=== PATIENT | female | born 1995 | race Caucasian/White ===

== ENCOUNTER → 2017-07-13 | Emergency (ER) | payer OTHER ==
[~2017-07-13] VITALS: Ht 167.6 cm; Wt 56.7 kg
[~2017-07-13] MED LIST: OSEL75CA PO; TUSSI PRES-B L120 M1 PO
== END | disposition home or self-care (01) ==
LOC: ER 13:07
DX: B34.9 Viral infection, unspecified (principal)

== ENCOUNTER 2017-10-05 18:54 | Emergency (ER) | payer OTHER ==
[~2017-10-05] VITALS: Ht 167.6 cm; Wt 59.0 kg
[2017-10-06] MEDS ORDERED: ORPHENADRINE C100 MG PO (08:18)
[2017-10-06] MEDS ORDERED: CELEBREX100 MG PO (08:18)
[2017-10-06] MEDS ORDERED: PERCOCET 5-3251 EACH PO (08:18)
== END 2017-10-06 08:54 | disposition home or self-care (01) ==
LOC: ER 18:54
DX: S70.11XA Contusion of right thigh, initial encounter (principal); W18.39XA Other fall on same level, initial encounter; Y93.89 Activity, other specified; Y92.89 Other specified places as the place of occurrence of the external cause; Y99.8 Other external cause status; R74.8 Abnormal levels of other serum enzymes

== ENCOUNTER 2020-01-25 11:33 | Emergency (ER) | payer OTHER ==
[~2020-01-25] VITALS: Ht 167.6 cm; Wt 61.7 kg
[~2020-01-25 11:33] MED LIST changes: +CELEBREX100 MG PO; +ORPHENADRINE C100 MG PO; +PERCOCET 5-3251 EACH PO
[2020-01-25] MEDS ORDERED: DICLOFENAC SODI75 MG PO (13:03)
== END 2020-01-25 14:05 | disposition home or self-care (01) ==
LOC: ER 11:33
DX: S50.01XA Contusion of right elbow, initial encounter (principal); M12.521 Traumatic arthropathy, right elbow; W18.09XA Striking against other object with subsequent fall, initial encounter; Y93.89 Activity, other specified; Y92.830 Public park as the place of occurrence of the external cause; Y99.8 Other external cause status

== ENCOUNTER 2021-08-11 16:10 | Emergency (ER) | payer OTHER ==
[~2021-08-11] VITALS: Ht 167.6 cm; Wt 61.2 kg
[~2021-08-11 16:10] MED LIST changes: +DICLOFENAC SODI75 MG PO
== END 2021-08-11 21:16 | disposition home or self-care (01) ==
LOC: ER 16:10
DX: J11.1 Influenza due to unidentified influenza virus with other respiratory manifestations (principal); J15.7 Pneumonia due to Mycoplasma pneumoniae; Z20.822 Contact with and (suspected) exposure to COVID-19

== ENCOUNTER 2022-09-06 19:14 | Emergency (ER) | payer OTHER ==
[~2022-09-06] VITALS: Ht 167.6 cm; Wt 62.1 kg
== END 2022-09-06 21:49 | disposition home or self-care (01) ==
LOC: ER 19:14
DX: N94.0 Mittelschmerz (principal); R10.2 Pelvic and perineal pain; Z91.013 Allergy to seafood

== ENCOUNTER 2023-04-26 18:57 | Emergency (ER) | payer OTHER ==
[~2023-04-26] VITALS: Ht 167.6 cm; Wt 63.5 kg
[2023-04-26 19:52] LABS: HEMOGLOBIN 12.8 g/dL (12.0-15.00); MEAN CELL VOLUME 92.4 fL (80.00-100.00); MEAN CORPUSCULAR HGB CONC 33.5 g/dl (32.0-36.0); PLATELET COUNT 229 K/uL (150-450); RED BLOOD COUNT 4.12 M/uL (4.00-6.00)
[2023-04-26 20:11] LABS: CALCIUM 9.3 mg/dL (8.5-10.1); CREATININE SERUM 0.92 mg/dL (0.55-1.02); GFR 72.17; POTASSIUM 3.63 mEq/L (3.5-5.1)
[2023-04-26 22:24] LABS: PH,URINE 7.5 (5.0-8.0); URINE APPEARANCE Clear; URINE BILIRRUBIN Negative (NEGATIVE); URINE BLOOD Large; URINE COLOR Yellow; URINE GLUCOSE Negative (NEGATIVE); URINE LEUKOCYTE Trace; URINE NITRATE Negative; URINE PROTEIN 30 (NEGATIVE)
[2023-04-26 22:28] LABS: URINE BACTERIA 1230.8 uL (0.0-1933); URINE EPITHELIAL CELLS 24.8 uL (0.0-38.8)
== END 2023-04-26 23:46 | disposition home or self-care (01) ==
LOC: ER 18:57
PROVIDERS: Emergency Medicine
DX: R53.81 Other malaise (principal)

== ENCOUNTER 2024-07-04 16:15 | Emergency (ER) | payer OTHER ==
[~2024-07-04] VITALS: Ht 167.6 cm; Wt 65.8 kg
[2024-07-04] MEDS ORDERED: ADDERALL 5 MG TA5 MG (18:26)
[2024-07-04] MEDS ORDERED: KETOROLAC TROMETHAMINE 60 MG VIAL IM ONE ×2 (18:45→19:21)
[2024-07-04] MEDS ORDERED: ORPHENADRINE CITRATE 30 MG/ML AMPUL IM ONE (18:45)
[2024-07-04] MEDS ORDERED: ORPHENADRINE CITRATE 30 MG/ML AMPUL ONE (19:21)
[2024-07-04] MEDS ORDERED: NORFLEX100MG PO (22:19)
[2024-07-04] MEDS ORDERED: KETO10TA2 PO (22:19)
== END 2024-07-04 22:45 | disposition home or self-care (01) ==
LOC: ER 16:17
DX: M54.50 Low back pain, unspecified (principal); F41.8 Other specified anxiety disorders; Z91.013 Allergy to seafood; N20.0 Calculus of kidney
CPT/HCPCS: 72131; 96372; 99284; J1885; J2360

== ENCOUNTER 2024-08-03 07:53 | Emergency (ER) | payer OTHER ==
[~2024-08-03] VITALS: Ht 167.6 cm; Wt 65.8 kg
[~2024-08-03 07:53] MED LIST changes: +ADDERALL 5 MG TA5 MG; +KETO10TA2 PO; +NORFLEX100MG PO
[2024-08-03 08:17] VITALS: BP 103/72; O2SAT 100
[2024-08-03] MEDS ORDERED: LEVALBUTEROL HCL 1.25 MG/3 ML SOLUTION IH STA (09:00)
[2024-08-03] MEDS ORDERED: METHYLPREDNISOLONE SOD SUCC 125 MG VIAL IV STA (09:01)
[2024-08-03] MEDS ORDERED: BUDESONIDE 0.5 MG/2 ML AMPUL.NEB IH STA (09:01)
[2024-08-03 09:45] LABS: HEMATOCRIT 41.9 % (36.0-45.00); HEMOGLOBIN 14.2 g/dL (12.0-15.00); MEAN CELL VOLUME 89.5 fL (80.00-100.00); MEAN CORPUSCULAR HEMOGLOBIN 30.4 pg (27.00-32.0); MEAN CORPUSCULAR HGB CONC 33.9 g/dl (32.0-36.0); PLATELET COUNT 149 K/uL (150-450); RED BLOOD COUNT 4.68 M/uL (4.00-6.00); RED CELL DISTRIBUTION WIDTH 13.7 % (11.5-14.5)
== END 2024-08-03 13:12 | disposition home or self-care (01) ==
LOC: ER 07:56
PROVIDERS: General Practice
DX: J10.1 Influenza due to other identified influenza virus with other respiratory manifestations (principal); B34.9 Viral infection, unspecified; J45.909 Unspecified asthma, uncomplicated; Z20.822 Contact with and (suspected) exposure to COVID-19; Z91.013 Allergy to seafood
CPT/HCPCS: 36415; 94640; 96365; 99284; J3490